=== PATIENT | male | born 1965 | race Caucasian/White ===

== ENCOUNTER 2016-12-19 08:36 | Emergency (ER) | payer BC ==
[~2016-12-19] VITALS: Ht 195.6 cm; Wt 113.8 kg
[2016-12-19 08:41] VITALS: TEMP 36.6; Ht 195.6 cm; Wt 113.8 kg
--- NOTE | 2016-12-19 09:10 | EMERGENCY ROOM VISIT NOTE ---
ED Visit Note First contact with patient: 08:46 CHIEF COMPLAINT: Spot on right cornea HISTORY OF PRESENT ILLNESS: This 51-year-old male presents the ER with chief complaint of a scratch on his right eye. The patient states that he normally wears contacts but has not had them in for approximately 1 week. The patient states over the last few days he noticed a spot on his right cornea. He also states that his eye was itchy and has been rubbing his eye. The past 2 days he has had some drainage in the morning from that eye. The patient denies any visual changes. The patient denies any severe eye pain. REVIEW OF SYSTEMS: 6 system review was performed and was negative unless stated otherwise in history of present illness. PMH: The patient is healthy; there is no significant medical or surgical history. SOCIAL HISTORY: Patient lives with his family. The patient admits to occasional alcohol use but denies any tobacco use. PHYSICAL EXAM: Vital Signs: Reviewed Nurse's notes. GENERAL: 51-year-old white male appears in no acute distress. MENTAL Status: Alert and oriented 3. EYES: . The pupils are round, equal, and react to light. EOMs are full. There is discharge of clear tears from the injured eye which is injected. There is no foreign body visible under athe eyelid even after lid eversion. No foreign body was seen embedded in the cornea. The cornea was clear and no hyphema was seen. Fluorescein uptake was observed with ultraviolet light at 3 o'clock position just medial to the cornea iris. EMERGENCY DEPARTMENT COURSE: The fluorescein was irrigated away and Ciloxan eyedrops were placed into the right eye. The patient was given the remainder of the drops to take home and use as directed. DIAGNOSIS: Right Corneal abrasion DISCHARGE INSTRUCTIONS AND TREATMENT: 2 drops of the Ciloxan into the right eye every 2 hours for 2 days then 2 drops every 4 hours for an additional 3 days. The eye should recover in about 24 to 36 hours. Return here or see an regulatory affairs portfolio leader if it is not improving in 2 days. Take Tylenol and/or ibuprofen as needed for pain. Wash hands frequently. Do not Wear contacts until symptoms have resolved. Vital Signs Date Time Temp Pulse Resp B/P (MAP) Pulse Ox O2 Delivery O2 Flow Rate FiO2 12/19/16 08:41 36.6 56 18 149/96 99 Room Air Departure Information Referrals No Doctor, Assigned (PCP) Patient Instructions [facility]
[2016-12-19] MEDS ORDERED: CIPROFLOXACIN HCL 0.3% OP SOLN 2.5 ML BTL OPR ONE (09:15)
[2016-12-19 09:35] VITALS: BP 128/79; PULSE 49; O2SAT 96
== END 2016-12-19 09:49 | disposition home or self-care (01) ==
LOC: C.EDB 08:38 → C.EDC 09:49
DX: S05.01XA Injury of conjunctiva and corneal abrasion without foreign body, right eye, initial encounter (principal); X58.XXXA Exposure to other specified factors, initial encounter